=== PATIENT | male | born 1970 | race Hispanic/Latino ===

== ENCOUNTER 2019-10-22 18:08 | Emergency (ER) | payer SELFPAY ==
[2019-10-22] MEDS ORDERED: DEXAMETHASONE SOD PHOSPHATE 10MG/ML 1ML VIAL ONE (18:32)
[2019-10-22] MEDS ORDERED: NAPROXEN 500 MG TABLET ONE (18:32)
== END 2019-10-22 19:26 | disposition home or self-care (01) ==
LOC: EDH 18:08
DX: M70.21 Olecranon bursitis, right elbow (principal); Y93.89 Activity, other specified
CPT/HCPCS: 96372; 99283; J1100